=== PATIENT | female | born 1955 | race Hispanic/Latino ===

== ENCOUNTER 2016-12-13 10:01 | Day surgery (SDC) | payer OTHER ==
[2016-12-12 11:08] VITALS: BMI 33.0
[2016-12-13] MEDS ORDERED: Gadodiamide 287 MG/ML VIAL (15ML) IV ONE (10:34)
[2016-12-13] MEDS ORDERED: ceFAZolin IV 1 gm in Dextrose 1 GM/50 ML BAG IVPB ONE (10:34)
[2016-12-13] MEDS ORDERED: Iohexol 300 50 ML ONE (10:34)
[2016-12-13] MEDS ORDERED: Gentamicin 80 mg/2mL Inj. ONE (10:34)
[2016-12-13] MEDS ORDERED: Midazolam 2 MG/2 ML VIAL ONE (11:16)
[2016-12-13] MEDS ORDERED: Lactated Ringer's 1,000 ML IV ONE (11:20)
[2016-12-13] MEDS: Lactated Ringer's 1,000 ML IV ONE (11:20)
[2016-12-13] MEDS ORDERED: HYDROmorphone 0.5 mg/0.5 ml ISec IVP PRN (13:00)
[2016-12-13 13:10] VITALS: BP 120/59; PULSE 57; RESP 18; TEMP 97.6; O2SAT 100
--- NOTE | 2016-12-13 16:25 | RAD ---
PROCEDURE: INTRAOPERATIVE FLUOROSCOPY -DISCOGRAPHY HISTORY: C5,6 CORD COMPRESSION COMPARISON: None available TECHNIQUE: Intraoperative fluoroscopy was provided to the referring physician to assist in performance of discography. FINDINGS: Please see op report further detail. IMPRESSION: Please see operative report for further detail. 24.8 seconds of fluoroscopy time was utilized with a total radiation dose of 4.36 mGy.
== END 2016-12-13 13:20 | disposition home or self-care (01) ==
LOC: C.SDS 10:01
PROVIDERS: ATTEND Specialist
DX: M50.20 Other cervical disc displacement, unspecified cervical region (principal); M54.12 Radiculopathy, cervical region
CPT/HCPCS: 62291; 76000; 82948; A9579; J0690; J1580; J2250; J2765; J3010; J7120; Q9967